=== PATIENT | male | born 1935 | race Caucasian/White ===

== ENCOUNTER → 2017-07-30 | Outpatient (CLI) | payer MEDICARE ==
[~2017-07-30] MED LIST: ALBUTEROL0.09 MG/A2 INH; ASPIRIN81 M1 PO; BRILINTA90 M1 PO; EPA1000 MG PO; KEFLEX500 MG PO; LEVOTHYROXINE0.15 M1 PO; LEVOTHYROXINE0.15 MG PO; LOSARTAN POTASS1 TA5 PO; LOSARTAN POTASS1 TAB PO; LUTEIN6 M1 PO; MEDROL DOSEPAK4 MG PO; METOPROLOL SUCC25 M2 PO; NAPROXEN500 M1 PO; OSTEO BI-FLEX1 EACH PO; PREDNICOT10 MG PO; SIMVASTATIN40 MG PO; ZITHROMAX Z PA250 MG PO
[2017-07-30 09:01] LABS: BASO # 0.1 10*3/uL (0.0-0.1); EOS # 1.2 10*3/uL (0.0-0.4); EOS % 12.4 % (1.0-4.0); HEMATOCRIT 46.2 % (42.0-52.0); HEMOGLOBIN 14.9 g/dl (14.0-18.0); LYMPH # 1.9 10*3/uL (1.3-4.4); LYMPH % 20.1 % (27.0-41.0); MEAN CELL VOLUME 92.8 fl (80.0-94.0); MEAN CORPUSCULAR HGB 29.9 pg (27.0-31.0); MEAN CORPUSCULAR HGB CONC 32.3 g/dl (33.0-37.0); MEAN PLATELET VOLUME 9.9 fl (9.6-12.3); MONO # 0.9 10*3/uL (0.1-1.0); MONO % 9.6 % (3.0-9.0); NEUT # 5.3 10*3/uL (2.3-7.9); NEUT % 56.6 % (47.0-73.0); PLATELET COUNT AUTOMATED 241 10*3/uL (130-400); RED BLOOD COUNT 4.98 10*6/uL (4.50-5.90); RED CELL DISTRI WIDTH 14.1 % (0-14.5); WHITE BLOOD COUNT 9.4 10*3/uL (4.8-10.8)
[2017-07-30 09:14] LABS: ALBUMIN 3.7 gm/dl (3.1-4.5); ALKALINE PHOSPHATASE 81 U/L (45-117); BUN 15 mg/dl (7-24); CHLORIDE 103 mmol/L (98-107); CHOLESTEROL 133 mg/dL (<200); CREATININE 0.85 mg/dL (0.70-1.30); HDL CHOLESTEROL 40 mg/dl (40-60); LDL CHOLESTEROL 61 mg/dL (9-159); POTASSIUM 4.4 mmol/L (3.5-5.1); SGOT/AST 50 IU/L (3-35); SGPT/ALT 61 U/L (12-78); SODIUM 138 mmol/L (136-145); TOTAL PROTEIN 7.7 gm/dL (6.4-8.2); TRIGLYCERIDES 162 mg/dl (<150); VLDL CHOLESTEROL 32 mg/dL (6-40)
[2017-07-30 09:43] LABS: FREE T4 1.03 ng/dl (0.76-1.46)
[2017-07-30 10:25] LABS: VITAMIN D, 25-HYDROXY 26.9 ng/mL (30-100)
== END | disposition home or self-care (01) ==
LOC: LAB 08:20
PROVIDERS: Internal Medicine
DX: Z12.5 Encounter for screening for malignant neoplasm of prostate (principal); I10 Essential (primary) hypertension; E11.9 Type 2 diabetes mellitus without complications; E89.0 Postprocedural hypothyroidism; E55.9 Vitamin D deficiency, unspecified; E78.2 Mixed hyperlipidemia

== ENCOUNTER → 2018-08-04 | Outpatient (CLI) | payer MEDICARE | END | disposition home or self-care (01) | LOC: US 12:43 | DX: I65.23 Occlusion and stenosis of bilateral carotid arteries (principal); I10 Essential (primary) hypertension ==

== ENCOUNTER 2018-10-05 09:59 | Emergency (ER) | payer MEDICARE ==
[~2018-10-05] VITALS: Ht 170.1 cm; Wt 95.3 kg
--- NOTE | ~2018-10-05 | EKG ---
[place], [place] ELECTROCARDIOGRAM REPORT NAME: MARCIA AGGARWAL UNIT #: [id number] ROOM: DOCTOR: EPIPHANY DRAFT REPORT BIRTHDATE: [birth year] 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
[~2018-10-05 09:59] MED LIST changes: -LEVOTHYROXINE0.15 M1 PO; +SYNTHROID,LEV175 MCG PO
[2018-10-05 10:09] LABS: BASO # 0.1 10*3/uL (0.0-0.1); BASO % 0.9 % (0.0-1.0); EOS % 8.6 % (1.0-4.0); HEMATOCRIT 47.2 % (42.0-52.0); HEMOGLOBIN 15.4 g/dl (14.0-18.0); LYMPH # 1.7 10*3/uL (1.3-4.4); LYMPH % 14.6 % (27.0-41.0); MEAN CELL VOLUME 92.9 fl (80.0-94.0); MEAN CORPUSCULAR HGB 30.3 pg (27.0-31.0); MEAN CORPUSCULAR HGB CONC 32.6 g/dl (33.0-37.0); MEAN PLATELET VOLUME 9.6 fl (9.6-12.3); MONO % 8.8 % (3.0-9.0); NEUT # 7.8 10*3/uL (2.3-7.9); NEUT % 66.6 % (47.0-73.0); PLATELET COUNT AUTOMATED 212 10*3/uL (130-400); RED BLOOD COUNT 5.08 10*6/uL (4.50-5.90); RED CELL DISTRI WIDTH 14.1 % (0-14.5); WHITE BLOOD COUNT 11.7 10*3/uL (4.8-10.8)
[2018-10-05 10:26] LABS: ACT PARTIAL THROMBO TIME 23.8 SECONDS (20.8-31.5)
[2018-10-05 10:28] LABS: ALBUMIN 3.7 gm/dl (3.1-4.5); ALKALINE PHOSPHATASE 77 U/L (45-117); BUN 16 mg/dl (7-24); CHLORIDE 105 mmol/L (98-107); CREATININE 0.99 mg/dL (0.70-1.30); POTASSIUM 3.9 mmol/L (3.5-5.1); SGOT/AST 57 IU/L (3-35); SGPT/ALT 91 U/L (12-78); SODIUM 136 mmol/L (136-145); TOTAL PROTEIN 7.6 gm/dL (6.4-8.2)
[2018-10-05 10:31] LABS: TROPONIN I < 0.015 ng/ml (<0.045)
== END 2018-10-05 13:37 | disposition home or self-care (01) ==
LOC: ED 09:59
PROVIDERS: Emergency Medicine
DX: R06.00 Dyspnea, unspecified (principal); I25.2 Old myocardial infarction; J45.909 Unspecified asthma, uncomplicated; E03.9 Hypothyroidism, unspecified; I11.0 Hypertensive heart disease with heart failure; I50.31 Acute diastolic (congestive) heart failure; Z91.048 Other nonmedicinal substance allergy status; Z79.899 Other long term (current) drug therapy

== ENCOUNTER 2018-10-26 00:51 | Inpatient (IN) | payer MEDICARE ==
[~2018-10-26] VITALS: Ht 170.1 cm; Wt 95.3 kg
[2018-10-26] VITALS (7 sets, daily range): BP systolic 118–184; BP diastolic 39–96
--- NOTE | ~2018-10-26 | EKG ---
[place], [place] ELECTROCARDIOGRAM REPORT NAME: MARCIA AGGARWAL UNIT #: [id number] ROOM: [facility] DOCTOR: LINA DRAFT REPORT BIRTHDATE: [birth year] [facility] Test Date: 2018-10-26 Test Time: 03:43:55 Pat Name: MARCIA AGGARWAL Department: Room: 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
--- NOTE | ~2018-10-26 | EKG ---
[place], [place] ELECTROCARDIOGRAM REPORT NAME: MARCIA AGGARWAL UNIT #: [id number] ROOM: [facility] DOCTOR: LINA DRAFT REPORT BIRTHDATE: [birth year] [facility] Test Date: 2018-10-26 Test Time: 01:05:20 Pat Name: MARCIA AGGARWAL Department: Room: 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
--- NOTE | ~2018-10-26 | EKG ---
[place], [place] ELECTROCARDIOGRAM REPORT NAME: MARCIA AGGARWAL UNIT #: [id number] ROOM: [facility] DOCTOR: LINA DRAFT REPORT BIRTHDATE: [birth year] [facility] Test Date: 2018-10-26 Test Time: 07:43:06 Pat Name: MARCAI AGGARWAL Department: Room: [facility] Gender: M Scowman: Kaylin Agustin : 1935 Requested By: MARITZA FARR Order Number: [id number] Reading MD: Monroe Chu MD Measurements Intervals [place] Rate: 70 P: 34 SC: 258 QRS: -28 QRSD: 102 T: 46 QT: 395 QTc: 427 Interpretive Statements Sinus rhythm Prolonged [place] interval Inferior infarct, old Lateral leads are also involved Baseline wander in lead(s) V6 Compared to ECG 10/17/2018 15:05:30 Ventricular premature complex(es) no longer present Myocardial infarct finding still present Electronically Signed On 10-26-2018 14:04:59 PST by Monroe Chu MD CM:EKGRPT:ELECTROCARDIOGRAM REPORT [id number] MARITZA VIRK DRAFT REPORT MARITZA FARR DO
[2018-10-26 01:22] LABS: BASO # 0.1 10*3/uL (0.0-0.1); BASO % 0.8 % (0.0-1.0); EOS # 1.3 10*3/uL (0.0-0.4); EOS % 10.8 % (1.0-4.0); HEMATOCRIT 46.9 % (42.0-52.0); HEMOGLOBIN 15.2 g/dl (14.0-18.0); LYMPH # 2.9 10*3/uL (1.3-4.4); LYMPH % 24.7 % (27.0-41.0); MEAN CELL VOLUME 94.6 fl (80.0-94.0); MEAN CORPUSCULAR HGB 30.6 pg (27.0-31.0); MEAN CORPUSCULAR HGB CONC 32.4 g/dl (33.0-37.0); MONO # 1.1 10*3/uL (0.1-1.0); MONO % 9.2 % (3.0-9.0); NEUT # 6.4 10*3/uL (2.3-7.9); NEUT % 53.9 % (47.0-73.0); PLATELET COUNT AUTOMATED 228 10*3/uL (130-400); RED BLOOD COUNT 4.96 10*6/uL (4.50-5.90); RED CELL DISTRI WIDTH 14.1 % (0-14.5); WHITE BLOOD COUNT 11.9 10*3/uL (4.8-10.8)
[2018-10-26 01:35] LABS: ACT PARTIAL THROMBO TIME 23.2 SECONDS (20.8-31.5)
[2018-10-26 02:00] LABS: ALKALINE PHOSPHATASE 103 U/L (45-117); BUN 23 mg/dl (7-24); CHLORIDE 101 mmol/L (98-107); CREATININE 0.94 mg/dL (0.70-1.30); POTASSIUM 3.9 mmol/L (3.5-5.1); SGOT/AST 35 IU/L (3-35); SGPT/ALT 64 U/L (12-78); SODIUM 136 mmol/L (136-145); TOTAL PROTEIN 7.8 gm/dL (6.4-8.2)
[2018-10-26 02:05] LABS: TROPONIN I < 0.015 ng/ml (<0.045)
[2018-10-26] MEDS ORDERED: METFORMIN850 MG PO (02:33)
[2018-10-26] MEDS ORDERED: LOSARTAN-HCTZ1 EAC2 PO (02:33)
[2018-10-26] MEDS ORDERED: TOPROL XL25 MG PO (02:34)
[2018-10-26] MEDS ORDERED: LUTEIN6 M2 PO (02:34)
[2018-10-26] MEDS ORDERED: ASPIRIN ADULT L81 MG PO (02:35)
[2018-10-26 05:18] LABS: BILIRUBIN NEGATIVE (NEGATIVE); BLOOD NEGATIVE (NEGATIVE); CLARITY CLEAR (CLEAR); COLOR YELLOW (YELLOW); GLUCOSE NEGATIVE (NEGATIVE); KETONE NEGATIVE (NEGATIVE); LEUKO ESTERASE NEGATIVE (NEGATIVE); NITRITE NEGATIVE (NEGATIVE); PH 5.5 (5.0-9.0); SPECIFIC GRAVITY 1.015 (1.005-1.030); UROBILINOGEN 0.2 E.U./dl (0.2-1.0)
[2018-10-26 05:33] LABS: BACTERIA TRACE; RBC 0-2 rbc/hpf (0-2); WBC 0-2 wbc/hpf (0-5)
[2018-10-26] MEDS ORDERED: ATROVENT HFA12.9 GM INH (05:36)
[2018-10-26 06:58] LABS: BASO # 0.1 10*3/uL (0.0-0.1); BASO % 0.7 % (0.0-1.0); EOS # 1.1 10*3/uL (0.0-0.4); EOS % 12.1 % (1.0-4.0); HEMATOCRIT 42.8 % (42.0-52.0); HEMOGLOBIN 14.1 g/dl (14.0-18.0); LYMPH # 1.6 10*3/uL (1.3-4.4); LYMPH % 17.3 % (27.0-41.0); MEAN CELL VOLUME 93.7 fl (80.0-94.0); MEAN CORPUSCULAR HGB 30.9 pg (27.0-31.0); MEAN CORPUSCULAR HGB CONC 32.9 g/dl (33.0-37.0); MEAN PLATELET VOLUME 9.6 fl (9.6-12.3); MONO # 0.8 10*3/uL (0.1-1.0); MONO % 8.4 % (3.0-9.0); NEUT # 5.5 10*3/uL (2.3-7.9); NEUT % 60.9 % (47.0-73.0); PLATELET COUNT AUTOMATED 191 10*3/uL (130-400); RED BLOOD COUNT 4.57 10*6/uL (4.50-5.90); RED CELL DISTRI WIDTH 14.1 % (0-14.5)
[2018-10-26 07:21] LABS: BUN 21 mg/dl (7-24); CHLORIDE 102 mmol/L (98-107); CHOLESTEROL 134 mg/dL (<200); CREATININE 0.92 mg/dL (0.70-1.30); FREE T4 1.04 ng/dl (0.76-1.46); HDL CHOLESTEROL 41 mg/dl (40-60); LDL CHOLESTEROL 67 mg/dL (9-159); POTASSIUM 4.1 mmol/L (3.5-5.1); SODIUM 138 mmol/L (136-145); TRIGLYCERIDES 131 mg/dl (<150); VLDL CHOLESTEROL 26 mg/dL (6-40)
[2018-10-26 08:23] LABS: VITAMIN D, 25-HYDROXY 42.2 ng/mL (30-100)
== END 2018-10-26 09:50 | disposition short-term general hospital (02) | DRG 281 ==
LOC: ED 00:51 → EDHOLD 02:14 → 5E 02:14 → ICCU 08:18
PROVIDERS: Internal Medicine; Student in an Organized Health Care Education/Training Program; ADMIT Internal Medicine
DX: I21.4 Non-ST elevation (NSTEMI) myocardial infarction (principal); I16.1 Hypertensive emergency; I45.81 Long QT syndrome; J45.909 Unspecified asthma, uncomplicated; E78.5 Hyperlipidemia, unspecified; I10 Essential (primary) hypertension; I44.0 Atrioventricular block, first degree; D75.89 Other specified diseases of blood and blood-forming organs; D72.810 Lymphocytopenia; I25.118 Atherosclerotic heart disease of native coronary artery with other forms of angina pectoris; E66.9 Obesity, unspecified; E11.65 Type 2 diabetes mellitus with hyperglycemia; E89.0 Postprocedural hypothyroidism; I25.2 Old myocardial infarction; Z88.9 Allergy status to unspecified drugs, medicaments and biological substances; Z88.5 Allergy status to narcotic agent; Z79.82 Long term (current) use of aspirin; Z79.84 Long term (current) use of oral hypoglycemic drugs; Z80.8 Family history of malignant neoplasm of other organs or systems; Z68.32 Body mass index [BMI] 32.0-32.9, adult

== ENCOUNTER → 2019-01-03 | Outpatient (CLI) | payer MEDICARE ==
[~2019-01-03] MED LIST changes: +ASPIRIN ADULT L81 MG PO; +ATROVENT HFA12.9 GM INH; +LOSARTAN-HCTZ1 EAC2 PO; +LUTEIN6 M2 PO; +METFORMIN850 MG PO; +TOPROL XL25 MG PO
== END | disposition home or self-care (01) ==
LOC: LAB 10:04
PROVIDERS: Physician Assistant
DX: R19.7 Diarrhea, unspecified (principal)

== ENCOUNTER 2019-10-26 09:03 | Emergency (ER) | payer MEDICARE ==
[~2019-10-26] VITALS: Ht 170.1 cm; Wt 90.7 kg
[2019-10-26 09:46] LABS: BASO # 0.1 10*3/uL (0.0-0.1); BASO % 0.8 % (0.0-1.0); EOS # 1.5 10*3/uL (0.0-0.4); EOS % 16.2 % (1.0-4.0); HEMATOCRIT 43.3 % (42.0-52.0); HEMOGLOBIN 13.8 g/dl (14.0-18.0); LYMPH # 1.6 10*3/uL (1.3-4.4); LYMPH % 17.3 % (27.0-41.0); MEAN CELL VOLUME 91.5 fl (80.0-94.0); MEAN CORPUSCULAR HGB 29.2 pg (27.0-31.0); MEAN CORPUSCULAR HGB CONC 31.9 g/dl (33.0-37.0); MEAN PLATELET VOLUME 9.9 fl (9.6-12.3); MONO # 0.8 10*3/uL (0.1-1.0); MONO % 8.8 % (3.0-9.0); NEUT # 5.2 10*3/uL (2.3-7.9); NEUT % 56.4 % (47.0-73.0); PLATELET COUNT AUTOMATED 199 10*3/uL (130-400); RED BLOOD COUNT 4.73 10*6/uL (4.50-5.90); WHITE BLOOD COUNT 9.3 10*3/uL (4.8-10.8)
[2019-10-26 09:58] LABS: ALBUMIN 3.6 gm/dl (3.1-4.5); ALKALINE PHOSPHATASE 92 U/L (45-117); BUN 22 mg/dl (7-24); CHLORIDE 104 mmol/L (98-107); POTASSIUM 4.2 mmol/L (3.5-5.1); SGOT/AST 28 IU/L (3-35); SGPT/ALT 60 U/L (12-78); SODIUM 137 mmol/L (136-145); TOTAL PROTEIN 7.2 gm/dL (6.4-8.2)
[2019-10-26 09:59] LABS: ACT PARTIAL THROMBO TIME 26.6 SECONDS (20.0-32.1)
[2019-10-26] MEDS ORDERED: ZOFRAN4 MG PO (11:07)
[2019-10-26] MEDS ORDERED: IMODIUM A-D2 M2 PO (11:07)
[2019-10-26] MEDS ORDERED: BRILINTA90 M1 PO (17:46)
[2019-10-26] MEDS ORDERED: MUCINEX1200 M1 PO (17:49)
== END 2019-10-26 11:15 | disposition home or self-care (01) ==
LOC: ED 09:03
PROVIDERS: Emergency Medicine
DX: K92.2 Gastrointestinal hemorrhage, unspecified (principal); J45.909 Unspecified asthma, uncomplicated; I25.10 Atherosclerotic heart disease of native coronary artery without angina pectoris; E11.9 Type 2 diabetes mellitus without complications; E78.5 Hyperlipidemia, unspecified; I10 Essential (primary) hypertension; E03.9 Hypothyroidism, unspecified; I25.2 Old myocardial infarction; E66.9 Obesity, unspecified; Z88.8 Allergy status to other drugs, medicaments and biological substances; Z79.899 Other long term (current) drug therapy; Z79.82 Long term (current) use of aspirin

== ENCOUNTER 2019-10-26 14:20 | Inpatient (IN) | payer MEDICARE ==
[~2019-10-26] VITALS: Ht 170.1 cm; Wt 96.2 kg
[~2019-10-26 14:20] MED LIST changes: +IMODIUM A-D2 M2 PO; +ZOFRAN4 MG PO
[2019-10-26 14:26] VITALS: BP 173/77
[2019-10-26 14:47] LABS: BASO # 0.1 10*3/uL (0.0-0.1); BASO % 0.6 % (0.0-1.0); EOS % 9.5 % (1.0-4.0); HEMATOCRIT 43.8 % (42.0-52.0); HEMOGLOBIN 13.8 g/dl (14.0-18.0); LYMPH # 1.9 10*3/uL (1.3-4.4); LYMPH % 17.7 % (27.0-41.0); MEAN CELL VOLUME 90.1 fl (80.0-94.0); MEAN CORPUSCULAR HGB 28.4 pg (27.0-31.0); MEAN CORPUSCULAR HGB CONC 31.5 g/dl (33.0-37.0); MONO # 1.1 10*3/uL (0.1-1.0); NEUT # 6.7 10*3/uL (2.3-7.9); NEUT % 61.7 % (47.0-73.0); PLATELET COUNT AUTOMATED 237 10*3/uL (130-400); RED BLOOD COUNT 4.86 10*6/uL (4.50-5.90); WHITE BLOOD COUNT 10.9 10*3/uL (4.8-10.8)
--- NOTE | 2019-10-26 17:45 | NUR ---
MSTime: 174 A 84 year old MALE admitted to 5E under services of JIMENA SABILLON DO. Pt. arrived via bed from ER. Chief complaint: BLOODY DIARRHEA. CANDACE GALAN
[2019-10-26] MEDS ORDERED: BRILINTA90 M1 PO (17:46)
[2019-10-26] MEDS ORDERED: MUCINEX1200 M1 PO (17:49)
--- NOTE | 2019-10-26 17:50 | NUR ---
MED REC UPDATED PER POLICY.
[2019-10-26 18:00] VITALS: BP 156/71
--- NOTE | 2019-10-26 18:44 | NUR ---
NOTIFIED OF CONSULT. NEW ORDERS RECEIVED.
[2019-10-26 20:00] VITALS: BP 145/75
[2019-10-26 23:10] VITALS: BP 100/70
--- NOTE | 2019-10-26 23:10 | NUR ---
PT CALLED NURSE INTO ROOM. STATED HE WAS FEELING FAINT AND DIDN'T FEEL GOOD. FELT LIKE HE WAS GOING TO PASS OUT. NOTIFIED DR. SINGLETON. PATIENT SITTING IN CHAIR AND STATED HE DIDN'T THINK THAT HE COULD GET INTO THE BED. PATIENT SWEATING AND NODDING OFF. PATIENTS VITALS TAKEN, DR. SINGLETON TOOK BLOOD PRESSURE MANUALLY AND WAS 100/70. ORDERS RECIEVED FOR A 500ML NORMAL SALINE BOLUS FOLLOWED BY 100ML/HR AND STAT LABS. PATIENT STATED HE PREFFERED TO SIT UP AT THIS TIME. BLOOD SUGAR ALSO CHECKED AND WAS 260
--- NOTE | 2019-10-26 23:25 | NUR ---
PRN ZOFRAN GIVEN FOR PT COMPLAINTS OF NAUSEA. CALL LIGHT WITHIN REACH, WILL MONITOR
--- NOTE | 2019-10-26 23:52 | NUR ---
AFTER 250ML BOLUS PATIENT STATED HE'S FEELING MUCH BETTER. PATIENT PROVIDED RECLINER CHAIR. REST OF BOLUS CONTINUING TO INFUSE. CALL LIGHT WITHIN REACH, WILL MONITOR
[2019-10-27] VITALS (9 sets, daily range): BP systolic 105–178; BP diastolic 45–82
[2019-10-27 00:01] LABS: BASO # 0.1 10*3/uL (0.0-0.1); BASO % 0.5 % (0.0-1.0); EOS # 1.2 10*3/uL (0.0-0.4); EOS % 9.1 % (1.0-4.0); HEMATOCRIT 39.9 % (42.0-52.0); HEMOGLOBIN 12.7 g/dl (14.0-18.0); LYMPH # 2.2 10*3/uL (1.3-4.4); LYMPH % 16.9 % (27.0-41.0); MEAN CELL VOLUME 91.5 fl (80.0-94.0); MEAN CORPUSCULAR HGB 29.1 pg (27.0-31.0); MEAN CORPUSCULAR HGB CONC 31.8 g/dl (33.0-37.0); MEAN PLATELET VOLUME 10.2 fl (9.6-12.3); MONO # 1.3 10*3/uL (0.1-1.0); MONO % 9.9 % (3.0-9.0); NEUT # 8.3 10*3/uL (2.3-7.9); NEUT % 63.1 % (47.0-73.0); PLATELET COUNT AUTOMATED 231 10*3/uL (130-400); RED BLOOD COUNT 4.36 10*6/uL (4.50-5.90); WHITE BLOOD COUNT 13.1 10*3/uL (4.8-10.8)
[2019-10-27 00:14] LABS: BUN 17 mg/dl (7-24); CHLORIDE 105 mmol/L (98-107); CREATININE 1.05 mg/dL (0.70-1.30); POTASSIUM 3.9 mmol/L (3.5-5.1); SODIUM 136 mmol/L (136-145)
--- NOTE | 2019-10-27 01:28 | NUR ---
NOTIFIED DR. SINGLETON OF ALL PATIENTS LABS. HE STATED THAT THE EKG'S AND TROPONINS CAN NOW BE CANCELLED. AND NOTIFIED HIM THAT WE ARE UNABLE TO SENT A CDIFF SAMPLE ON HIM BECAUSE HE STARTED COLO PREP SOON HE CAME TO THE FLOOR. ALSO SPOKE WITH HIM ABOUT PATIENTS LOSARTAN AND PATIENT STATING HE DOES NOT BELIEVE THAT HE TAKES THAT DOSE. DR. SINGLETON STATED THE NURSE IN THE MORNING WILL HAVE TO [facility] CHECK WITH [facility] TO MAKE SURE WHAT THE PATIENT IS ON
--- NOTE | 2019-10-27 02:00 | NUR ---
PATIENT RESTING IN RECLINER CHAIR. STATES HE'S FEELING MUCH BETTER. HAS NO COMPLAINTS AT THIS TIME. CALL LIGHT WITHIN REACH
[2019-10-27 06:24] LABS: BASO # 0.1 10*3/uL (0.0-0.1); BASO % 0.6 % (0.0-1.0); EOS # 0.7 10*3/uL (0.0-0.4); EOS % 6.5 % (1.0-4.0); HEMATOCRIT 39.1 % (42.0-52.0); HEMOGLOBIN 12.2 g/dl (14.0-18.0); LYMPH % 17.8 % (27.0-41.0); MEAN CELL VOLUME 91.8 fl (80.0-94.0); MEAN CORPUSCULAR HGB 28.6 pg (27.0-31.0); MEAN CORPUSCULAR HGB CONC 31.2 g/dl (33.0-37.0); MEAN PLATELET VOLUME 10.3 fl (9.6-12.3); MONO % 8.5 % (3.0-9.0); NEUT # 7.5 10*3/uL (2.3-7.9); PLATELET COUNT AUTOMATED 212 10*3/uL (130-400); RED BLOOD COUNT 4.26 10*6/uL (4.50-5.90); RED CELL DISTRI WIDTH 15.4 % (0-14.5); WHITE BLOOD COUNT 11.4 10*3/uL (4.8-10.8)
--- NOTE | 2019-10-27 06:28 | NUR ---
NOTIFIED DR. BLISS OF PATIENT HAVING BLOODY BUT CLEARING LIQUID STOOLS AND ASKED ABOUT GIVING ENEMAS. HE STATED TO NOT GIVE THE PATIENT ANY ENEMAS
[2019-10-27 06:56] LABS: ALBUMIN 3.5 gm/dl (3.1-4.5); BUN 16 mg/dl (7-24); CHLORIDE 106 mmol/L (98-107); CHOLESTEROL 115 mg/dL (<200); CREATININE 0.84 mg/dL (0.70-1.30); PHOSPHOROUS 3.6 mg/dL (2.5-4.9); POTASSIUM 4.1 mmol/L (3.5-5.1); SGPT/ALT 56 U/L (12-78); SODIUM 137 mmol/L (136-145); TOTAL PROTEIN 6.6 gm/dL (6.4-8.2); TRIGLYCERIDES 154 mg/dl (<150); VLDL CHOLESTEROL 31 mg/dL (6-40)
[2019-10-27 07:03] LABS: ALKALINE PHOSPHATASE 63 U/L (45-117); HDL CHOLESTEROL 34 mg/dl (40-60); LDL CHOLESTEROL 50 mg/dL (9-159); SGOT/AST 28 IU/L (3-35); THYROID STIM HORMONE (HS) 0.284 uIU/ml (0.358-4.75)
--- NOTE | 2019-10-27 07:44 | NUR ---
24 HR CHART CHECK COMPLETE.
[2019-10-27 07:50] LABS: VITAMIN D, 25-HYDROXY 43.3 ng/mL (30-100)
--- NOTE | 2019-10-27 08:00 | NUR ---
IN TO SEE PT AT THIS TIME. HE IS SITTING UP IN THE CHAIR WATCHING TV. IV FLUIDS INFUSING PER ORDER. PT STATES THAT HE IS FEELING OKAY BUT IS STILL HAVING WATERY STOOLS WITH YAMILKA RED BLOOD IN THEM. NO OTHER C/O ARE VOICED. BE IS LOW, CALL LIGHT WITHIN REACH. WILL CONTINUE TO MONITOR.
--- NOTE | 2019-10-27 09:00 | NUR ---
Psychiatric Np in to talk to patient. Patient states lives at home with . There are no steps in the home. Physician: helen davis Pharmacy: [facility] health services: none Patient's level of ADLs: INDEPENDENT Patient has working utilities: all working DME: none Follow-up physician's appointment after d/c: will be made by hospitalist nurse director upon discharge Does patient want to access PORTAL?: no Discharge plan discussed with patient, he lives at home with his , he is independent in adls and ambulation he states he will return home when medically stable and denies any home needs, case management will follow. AUBREY BARBA
--- NOTE | 2019-10-27 20:00 | NUR ---
RESTING IN BED WITH EYES CLOSED. CALL LIGHT WITHIN REACH.
--- NOTE | 2019-10-27 22:00 | NUR ---
BLOOD SUGAR 182. PT. REFUSES INSULIN.
[2019-10-28] VITALS: BP 150/67
--- NOTE | 2019-10-28 06:30 | NUR ---
BLOOD SUGAR 182; PT. REFUSES INSULIN COVERAGE & STATES THAT HE TAKEN METFORMIN AT HOME.
[2019-10-28 07:05] LABS: BASO # 0.1 10*3/uL (0.0-0.1); BASO % 0.7 % (0.0-1.0); EOS # 1.2 10*3/uL (0.0-0.4); EOS % 16.8 % (1.0-4.0); HEMATOCRIT 35.7 % (42.0-52.0); HEMOGLOBIN 11.1 g/dl (14.0-18.0); LYMPH # 1.5 10*3/uL (1.3-4.4); LYMPH % 20.4 % (27.0-41.0); MEAN CELL VOLUME 92.5 fl (80.0-94.0); MEAN CORPUSCULAR HGB 28.8 pg (27.0-31.0); MEAN CORPUSCULAR HGB CONC 31.1 g/dl (33.0-37.0); MEAN PLATELET VOLUME 10.5 fl (9.6-12.3); MONO # 0.8 10*3/uL (0.1-1.0); MONO % 10.6 % (3.0-9.0); NEUT # 3.8 10*3/uL (2.3-7.9); NEUT % 51.1 % (47.0-73.0); PLATELET COUNT AUTOMATED 186 10*3/uL (130-400); RED BLOOD COUNT 3.86 10*6/uL (4.50-5.90); RED CELL DISTRI WIDTH 15.1 % (0-14.5); WHITE BLOOD COUNT 7.3 10*3/uL (4.8-10.8)
[2019-10-28 07:29] LABS: BUN 12 mg/dl (7-24); CHLORIDE 110 mmol/L (98-107); CREATININE 0.75 mg/dL (0.70-1.30); POTASSIUM 4.1 mmol/L (3.5-5.1); SODIUM 141 mmol/L (136-145)
[2019-10-28 08:00] VITALS: BP 131/67
[2019-10-28] MEDS ORDERED: LOSARTAN-HCTZ1 EACH PO (09:30)
[2019-10-28] MEDS ORDERED: HYZAAR 50-12.51 EACH PO (09:32)
--- NOTE | 2019-10-28 10:47 | NUR ---
PHYSICIAN WAS NOTIFIED OF DR. POWERS CONSULT. RESPONSE OF NOTIFICATION WAS UP TO FLOOR TO SEE PATIENT. ALIDA AYALA
[2019-10-28 12:00] VITALS: BP 108/54
[2019-10-28] MEDS ORDERED: CARAFATE1 G1 PO (13:04)
[2019-10-28] MEDS ORDERED: PROTONIX40 MG PO (13:04)
--- NOTE | 2019-10-28 13:47 | NUR ---
PT DISCHARGED AT THIS TIME. IV REMOVED AND PRESSURE DRESSING APPLIED. PT VERBALIZED UNDERSTANDING OF DISCHARGE INSTRUCTIONS.
== END 2019-10-28 13:47 | disposition home or self-care (01) | DRG 384 ==
LOC: ED 14:20 → 5E 17:00 → EDHOLD 17:00 → 5E 17:15
PROVIDERS: Emergency Medicine; Internal Medicine; ADMIT Internal Medicine
PROC: 0DJD8ZZ Inspection of Lower Intestinal Tract, Via Natural or Artificial Opening Endoscopic (ICD-10-PCS; principal; 2019-10-27)
PROC: 0DB68ZX Excision of Stomach, Via Natural or Artificial Opening Endoscopic, Diagnostic (ICD-10-PCS; principal; 2019-10-27)
DX: K25.9 Gastric ulcer, unspecified as acute or chronic, without hemorrhage or perforation (principal); I10 Essential (primary) hypertension; E11.9 Type 2 diabetes mellitus without complications; I25.10 Atherosclerotic heart disease of native coronary artery without angina pectoris; E03.9 Hypothyroidism, unspecified; E66.09 Other obesity due to excess calories; D75.89 Other specified diseases of blood and blood-forming organs; E78.5 Hyperlipidemia, unspecified; E11.65 Type 2 diabetes mellitus with hyperglycemia; J45.909 Unspecified asthma, uncomplicated; K57.30 Diverticulosis of large intestine without perforation or abscess without bleeding; Z96.652 Presence of left artificial knee joint; I25.2 Old myocardial infarction; Z68.33 Body mass index [BMI] 33.0-33.9, adult; Z91.018 Allergy to other foods; Z79.82 Long term (current) use of aspirin; Z79.899 Other long term (current) drug therapy; Z95.5 Presence of coronary angioplasty implant and graft; Z82.49 Family history of ischemic heart disease and other diseases of the circulatory system; Z80.9 Family history of malignant neoplasm, unspecified; Z90.49 Acquired absence of other specified parts of digestive tract; Z98.42 Cataract extraction status, left eye; Z98.41 Cataract extraction status, right eye

== ENCOUNTER → 2019-10-30 | Outpatient (CLI) | payer MEDICARE ==
[~2019-10-30] MED LIST changes: +CARAFATE1 G1 PO; +HYZAAR 50-12.51 EACH PO; +LOSARTAN-HCTZ1 EACH PO; +MUCINEX1200 M1 PO; +PROTONIX40 MG PO
[2019-10-30 10:49] LABS: BASO # 0.1 10*3/uL (0.0-0.1); BASO % 0.7 % (0.0-1.0); EOS # 1.6 10*3/uL (0.0-0.4); EOS % 18.5 % (1.0-4.0); HEMATOCRIT 36.9 % (42.0-52.0); HEMOGLOBIN 11.5 g/dl (14.0-18.0); LYMPH # 1.8 10*3/uL (1.3-4.4); LYMPH % 20.9 % (27.0-41.0); MEAN CORPUSCULAR HGB 28.7 pg (27.0-31.0); MEAN CORPUSCULAR HGB CONC 31.2 g/dl (33.0-37.0); MONO # 0.8 10*3/uL (0.1-1.0); MONO % 8.8 % (3.0-9.0); NEUT # 4.3 10*3/uL (2.3-7.9); NEUT % 50.6 % (47.0-73.0); PLATELET COUNT AUTOMATED 200 10*3/uL (130-400); RED BLOOD COUNT 4.01 10*6/uL (4.50-5.90); RED CELL DISTRI WIDTH 14.9 % (0-14.5); WHITE BLOOD COUNT 8.5 10*3/uL (4.8-10.8)
== END | disposition home or self-care (01) ==
LOC: LAB 10:34
PROVIDERS: Student in an Organized Health Care Education/Training Program
DX: K25.9 Gastric ulcer, unspecified as acute or chronic, without hemorrhage or perforation (principal)

== ENCOUNTER → 2020-02-09 | Outpatient (CLI) | payer MEDICARE ==
[2020-02-09 14:59] LABS: BASO # 0.1 10*3/uL (0.0-0.1); BASO % 0.5 % (0.0-1.0); EOS # 1.1 10*3/uL (0.0-0.4); EOS % 11.4 % (1.0-4.0); HEMATOCRIT 38.5 % (42.0-52.0); LYMPH # 1.6 10*3/uL (1.3-4.4); LYMPH % 16.9 % (27.0-41.0); MEAN CELL VOLUME 84.1 fl (80.0-94.0); MEAN CORPUSCULAR HGB 24.9 pg (27.0-31.0); MEAN CORPUSCULAR HGB CONC 29.6 g/dl (33.0-37.0); MEAN PLATELET VOLUME 10.5 fl (9.6-12.3); MONO # 1.1 10*3/uL (0.1-1.0); NEUT # 5.7 10*3/uL (2.3-7.9); NEUT % 59.8 % (47.0-73.0); PLATELET COUNT AUTOMATED 239 10*3/uL (130-400); RED BLOOD COUNT 4.58 10*6/uL (4.50-5.90); RED CELL DISTRI WIDTH 16.6 % (0-14.5); WHITE BLOOD COUNT 9.6 10*3/uL (4.8-10.8)
[2020-02-09 15:32] LABS: ALBUMIN 3.6 gm/dl (3.1-4.5); ALKALINE PHOSPHATASE 73 U/L (45-117); BUN 21 mg/dl (7-24); CHLORIDE 103 mmol/L (98-107); CREATININE 0.85 mg/dL (0.70-1.30); POTASSIUM 4.2 mmol/L (3.5-5.1); SGOT/AST 35 IU/L (3-35); SGPT/ALT 53 U/L (12-78); SODIUM 136 mmol/L (136-145); TOTAL PROTEIN 7.3 gm/dL (6.4-8.2)
== END | disposition home or self-care (01) ==
LOC: LAB 12:42 → US 13:00
PROVIDERS: Urology
DX: Z12.5 Encounter for screening for malignant neoplasm of prostate (principal); I10 Essential (primary) hypertension; R53.83 Other fatigue; R35.1 Nocturia

== ENCOUNTER → 2020-02-22 | Outpatient (CLI) | payer MEDICARE | END | disposition home or self-care (01) | LOC: CT 08:12 | DX: K76.0 Fatty (change of) liver, not elsewhere classified (principal); N28.1 Cyst of kidney, acquired; K57.30 Diverticulosis of large intestine without perforation or abscess without bleeding; I71.9 Aortic aneurysm of unspecified site, without rupture; K59.09 Other constipation; N28.89 Other specified disorders of kidney and ureter; Z90.49 Acquired absence of other specified parts of digestive tract ==

== ENCOUNTER → 2021-02-12 | Outpatient (CLI) | payer MEDICARE ==
[2021-02-12 10:28] LABS: CREATININE 0.87 mg/dL (0.70-1.30)
== END | disposition home or self-care (01) ==
LOC: CT 10:00 → LAB 10:02
PROVIDERS: Radiology Diagnostic Radiology; ATTEND Urology
DX: Z01.818 Encounter for other preprocedural examination (principal); N20.0 Calculus of kidney; N28.1 Cyst of kidney, acquired; K57.30 Diverticulosis of large intestine without perforation or abscess without bleeding; I25.10 Atherosclerotic heart disease of native coronary artery without angina pectoris; K76.0 Fatty (change of) liver, not elsewhere classified; K76.89 Other specified diseases of liver; I71.4 Abdominal aortic aneurysm, without rupture; Z90.49 Acquired absence of other specified parts of digestive tract

== ENCOUNTER 2021-09-06 03:30 | Emergency (ER) | payer MEDICARE ==
[2021-09-06 04:12] LABS: BASO # 0.1 10*3/uL (0.0-0.1); BASO % 0.9 % (0.0-1.0); EOS # 1.2 10*3/uL (0.0-0.4); EOS % 15.6 % (1.0-4.0); HEMATOCRIT 39.1 % (42.0-52.0); LYMPH # 1.4 10*3/uL (1.3-4.4); LYMPH % 18.6 % (27.0-41.0); MEAN CORPUSCULAR HGB 29.2 pg (27.0-31.0); MEAN CORPUSCULAR HGB CONC 31.7 g/dl (33.0-37.0); MEAN PLATELET VOLUME 9.9 fl (9.6-12.3); MONO # 0.6 10*3/uL (0.1-1.0); MONO % 7.9 % (3.0-9.0); NEUT # 4.2 10*3/uL (2.3-7.9); NEUT % 56.6 % (47.0-73.0); PLATELET COUNT AUTOMATED 181 10*3/uL (130-400); RED BLOOD COUNT 4.25 10*6/uL (4.50-5.90); RED CELL DISTRI WIDTH 14.1 % (0-14.5); WHITE BLOOD COUNT 7.4 10*3/uL (4.8-10.8)
== END 2021-09-06 04:24 | disposition home or self-care (01) ==
LOC: ED 03:30
PROVIDERS: Internal Medicine
DX: R04.0 Epistaxis (principal); Z79.899 Other long term (current) drug therapy

== ENCOUNTER 2021-10-11 18:16 | Inpatient (IN) | payer MEDICARE ==
[~2021-10-11] VITALS: Ht 167.6 cm; Wt 93.0 kg
[2021-10-11 18:25] VITALS: BP 187/81
[2021-10-11 18:50] VITALS: BP 178/87
[2021-10-11] MEDS ORDERED: ASPIRIN ADULT L81 M2 PO (18:50)
[2021-10-11 19:22] LABS: BASO # 0.1 10*3/uL (0.0-0.1); BASO % 0.5 % (0.0-1.0); EOS # 0.8 10*3/uL (0.0-0.4); EOS % 5.7 % (1.0-4.0); HEMATOCRIT 42.1 % (42.0-52.0); LYMPH # 1.5 10*3/uL (1.3-4.4); LYMPH % 10.3 % (27.0-41.0); MEAN CELL VOLUME 90.5 fl (80.0-94.0); MEAN CORPUSCULAR HGB 28.6 pg (27.0-31.0); MEAN CORPUSCULAR HGB CONC 31.6 g/dl (33.0-37.0); MEAN PLATELET VOLUME 9.8 fl (9.6-12.3); MONO # 0.8 10*3/uL (0.1-1.0); MONO % 5.7 % (3.0-9.0); NEUT # 11.3 10*3/uL (2.3-7.9); NEUT % 77.1 % (47.0-73.0); PLATELET COUNT AUTOMATED 322 10*3/uL (130-400); RED BLOOD COUNT 4.65 10*6/uL (4.50-5.90); RED CELL DISTRI WIDTH 14.6 % (0-14.5); WHITE BLOOD COUNT 14.6 10*3/uL (4.8-10.8)
[2021-10-11 19:42] LABS: ALKALINE PHOSPHATASE 94 U/L (45-117); BUN 26 mg/dl (7-24); CHLORIDE 106 mmol/L (98-107); CREATININE 1.17 mg/dL (0.70-1.30); POTASSIUM 4.5 mmol/L (3.5-5.1); SGOT/AST 29 IU/L (3-35); SGPT/ALT 39 U/L (12-78); SODIUM 136 mmol/L (136-145); TOTAL PROTEIN 7.6 gm/dL (6.4-8.2)
[2021-10-11 20:50] LABS: BILIRUBIN Negative (Negative); BLOOD Negative (Negative); CLARITY Clear (Clear); COLOR Yellow (Yellow); GLUCOSE Negative (Negative); KETONE Negative (Negative); LEUKO ESTERASE Negative (Negative); NITRITE Negative (Negative); SPECIFIC GRAVITY 1.015 (1.001-1.030); UROBILINOGEN 0.2 E.U./dl (0.0-1.0)
[2021-10-11 21:13] LABS: WBC 0-2 wbc/hpf (0-5)
[2021-10-11 21:53] VITALS: BP 181/84
[2021-10-11 21:56] VITALS: BP 157/82
[2021-10-12 00:05] VITALS: BP 150/80
[2021-10-12 03:10] VITALS: BP 168/90
[2021-10-12 06:17] LABS: BUN 21 mg/dl (7-24); CHLORIDE 107 mmol/L (98-107); CHOLESTEROL 108 mg/dL (<200); CREATININE 0.92 mg/dL (0.70-1.30); LDL CHOLESTEROL 47 mg/dL (9-159); POTASSIUM 4.2 mmol/L (3.5-5.1); SODIUM 138 mmol/L (136-145); TRIGLYCERIDES 158 mg/dl (<150)
[2021-10-12 06:25] LABS: BASO # 0.1 10*3/uL (0.0-0.1); BASO % 0.6 % (0.0-1.0); EOS # 0.7 10*3/uL (0.0-0.4); EOS % 6.5 % (1.0-4.0); HEMATOCRIT 39.4 % (42.0-52.0); LYMPH # 1.4 10*3/uL (1.3-4.4); LYMPH % 13.3 % (27.0-41.0); MEAN CORPUSCULAR HGB 28.1 pg (27.0-31.0); MEAN CORPUSCULAR HGB CONC 31.2 g/dl (33.0-37.0); MONO # 0.8 10*3/uL (0.1-1.0); MONO % 7.5 % (3.0-9.0); NEUT # 7.7 10*3/uL (2.3-7.9); NEUT % 71.3 % (47.0-73.0); PLATELET COUNT AUTOMATED 306 10*3/uL (130-400); RED BLOOD COUNT 4.38 10*6/uL (4.50-5.90); RED CELL DISTRI WIDTH 14.5 % (0-14.5); WHITE BLOOD COUNT 10.8 10*3/uL (4.8-10.8)
[2021-10-12 07:47] LABS: VITAMIN D, 25-HYDROXY 47.1 ng/mL (30-100)
[2021-10-12 12:00] VITALS: BP 169/73
[2021-10-13] VITALS: BP 161/74
[2021-10-13 05:55] LABS: BUN 16 mg/dl (7-24); CHLORIDE 106 mmol/L (98-107); CREATININE 0.83 mg/dL (0.70-1.30); LIPASE 74 U/L (73-393); POTASSIUM 4.1 mmol/L (3.5-5.1); SODIUM 138 mmol/L (136-145)
[2021-10-13 06:39] LABS: BASO # 0.1 10*3/uL (0.0-0.1); BASO % 0.9 % (0.0-1.0); EOS # 0.7 10*3/uL (0.0-0.4); HEMATOCRIT 38.9 % (42.0-52.0); LYMPH # 1.5 10*3/uL (1.3-4.4); LYMPH % 19.2 % (27.0-41.0); MEAN CELL VOLUME 91.3 fl (80.0-94.0); MEAN CORPUSCULAR HGB 28.6 pg (27.0-31.0); MEAN CORPUSCULAR HGB CONC 31.4 g/dl (33.0-37.0); MONO # 0.6 10*3/uL (0.1-1.0); MONO % 7.3 % (3.0-9.0); NEUT # 4.9 10*3/uL (2.3-7.9); NEUT % 62.8 % (47.0-73.0); PLATELET COUNT AUTOMATED 300 10*3/uL (130-400); RED BLOOD COUNT 4.26 10*6/uL (4.50-5.90); RED CELL DISTRI WIDTH 14.4 % (0-14.5); WHITE BLOOD COUNT 7.8 10*3/uL (4.8-10.8)
[2021-10-13 08:34] VITALS: BP 143/70
[2021-10-13 12:00] VITALS: BP 164/68
[2021-10-13 16:00] VITALS: BP 177/72
[2021-10-13 20:00] VITALS: BP 188/102
[2021-10-14] VITALS: BP 170/84
[2021-10-14 04:57] VITALS: BP 186/85
[2021-10-14 06:27] LABS: BASO # 0.1 10*3/uL (0.0-0.1); BASO % 0.8 % (0.0-1.0); EOS # 0.9 10*3/uL (0.0-0.4); EOS % 9.5 % (1.0-4.0); HEMATOCRIT 42.1 % (42.0-52.0); LYMPH # 1.7 10*3/uL (1.3-4.4); LYMPH % 18.7 % (27.0-41.0); MEAN CELL VOLUME 90.5 fl (80.0-94.0); MEAN CORPUSCULAR HGB 28.2 pg (27.0-31.0); MEAN CORPUSCULAR HGB CONC 31.1 g/dl (33.0-37.0); MEAN PLATELET VOLUME 9.9 fl (9.6-12.3); MONO # 0.7 10*3/uL (0.1-1.0); MONO % 7.2 % (3.0-9.0); NEUT # 5.8 10*3/uL (2.3-7.9); NEUT % 63.3 % (47.0-73.0); PLATELET COUNT AUTOMATED 330 10*3/uL (130-400); RED BLOOD COUNT 4.65 10*6/uL (4.50-5.90); RED CELL DISTRI WIDTH 14.2 % (0-14.5); WHITE BLOOD COUNT 9.2 10*3/uL (4.8-10.8)
[2021-10-14 06:29] LABS: BUN 15 mg/dl (7-24); CHLORIDE 104 mmol/L (98-107); CREATININE 0.92 mg/dL (0.70-1.30); POTASSIUM 4.3 mmol/L (3.5-5.1); SODIUM 138 mmol/L (136-145)
[2021-10-14 08:00] VITALS: BP 177/93; BP 177/98
[2021-10-14 12:00] VITALS: BP 171/73
[2021-10-14 16:00] VITALS: BP 161/76
[2021-10-14 20:00] VITALS: BP 175/79
[2021-10-15] VITALS: BP 162/47
[2021-10-15 05:06] LABS: TB1 Ag VALUE 0.01 IU/mL (.)
[2021-10-15 06:16] LABS: BASO # 0.1 10*3/uL (0.0-0.1); BASO % 0.7 % (0.0-1.0); EOS # 0.9 10*3/uL (0.0-0.4); EOS % 9.3 % (1.0-4.0); HEMATOCRIT 41.8 % (42.0-52.0); LYMPH # 1.7 10*3/uL (1.3-4.4); LYMPH % 18.2 % (27.0-41.0); MEAN CELL VOLUME 90.1 fl (80.0-94.0); MEAN CORPUSCULAR HGB 28.7 pg (27.0-31.0); MEAN CORPUSCULAR HGB CONC 31.8 g/dl (33.0-37.0); MEAN PLATELET VOLUME 10.2 fl (9.6-12.3); MONO # 0.6 10*3/uL (0.1-1.0); MONO % 6.9 % (3.0-9.0); NEUT # 5.9 10*3/uL (2.3-7.9); NEUT % 64.1 % (47.0-73.0); PLATELET COUNT AUTOMATED 311 10*3/uL (130-400); RED BLOOD COUNT 4.64 10*6/uL (4.50-5.90); RED CELL DISTRI WIDTH 14.2 % (0-14.5); WHITE BLOOD COUNT 9.2 10*3/uL (4.8-10.8)
[2021-10-15 06:32] LABS: BUN 17 mg/dl (7-24); CHLORIDE 103 mmol/L (98-107); CREATININE 0.83 mg/dL (0.70-1.30); SODIUM 137 mmol/L (136-145)
[2021-10-15 08:00] VITALS: BP 130/78
[2021-10-15] MEDS ORDERED: LOSARTAN-HCTZ1 EACH PO (10:54)
[2021-10-15] MEDS ORDERED: JARDIANCE10 MG PO (14:13)
== END 2021-10-15 12:09 | disposition home or self-care (01) | DRG 683 ==
LOC: ED 18:16 → 4E 10-12 01:41 → EDHOLD 10-12 01:41 → 4E 10-12 02:09
PROVIDERS: Family Medicine; Hospitalist; Internal Medicine; Internal Medicine Infectious Disease; Student in an Organized Health Care Education/Training Program; ADMIT Internal Medicine; ATTEND Internal Medicine
DX: N17.2 Acute kidney failure with medullary necrosis (principal); R65.10 Systemic inflammatory response syndrome (SIRS) of non-infectious origin without acute organ dysfunction; R91.8 Other nonspecific abnormal finding of lung field; Z20.822 Contact with and (suspected) exposure to COVID-19; D64.9 Anemia, unspecified; E53.8 Deficiency of other specified B group vitamins; R19.7 Diarrhea, unspecified; I10 Essential (primary) hypertension; E03.9 Hypothyroidism, unspecified; E78.5 Hyperlipidemia, unspecified; I25.10 Atherosclerotic heart disease of native coronary artery without angina pectoris; E11.65 Type 2 diabetes mellitus with hyperglycemia; J45.909 Unspecified asthma, uncomplicated; R91.1 Solitary pulmonary nodule; J44.9 Chronic obstructive pulmonary disease, unspecified; E66.9 Obesity, unspecified; Z79.82 Long term (current) use of aspirin; Z79.899 Other long term (current) drug therapy; Z95.5 Presence of coronary angioplasty implant and graft; Z68.33 Body mass index [BMI] 33.0-33.9, adult

== ENCOUNTER → 2022-12-16 | Outpatient (CLI) | payer MEDICARE ==
[~2022-12-16] MED LIST changes: +ASPIRIN ADULT L81 M2 PO; +JARDIANCE10 MG PO
== END | disposition home or self-care (01) ==
LOC: US 12:47
PROVIDERS: ATTEND Orthopaedic Surgery
DX: Z47.1 Aftercare following joint replacement surgery (principal); M79.89 Other specified soft tissue disorders; M71.22 Synovial cyst of popliteal space [Baker], left knee

== ENCOUNTER 2023-02-06 18:09 | Emergency (ER) | payer MEDICARE ==
[~2023-02-06] VITALS: Wt 90.7 kg
== END 2023-02-06 21:00 | disposition home or self-care (01) ==
LOC: ED 18:09
DX: M25.462 Effusion, left knee (principal); I50.9 Heart failure, unspecified; I11.0 Hypertensive heart disease with heart failure; I25.10 Atherosclerotic heart disease of native coronary artery without angina pectoris; E11.9 Type 2 diabetes mellitus without complications; E78.00 Pure hypercholesterolemia, unspecified; Z98.42 Cataract extraction status, left eye; Z98.41 Cataract extraction status, right eye; Z98.890 Other specified postprocedural states; Z96.652 Presence of left artificial knee joint; Z90.89 Acquired absence of other organs; Z87.442 Personal history of urinary calculi; Z90.49 Acquired absence of other specified parts of digestive tract

== ENCOUNTER → 2023-02-10 | Outpatient (CLI) | payer MEDICARE ==
[2023-02-10 14:46] LABS: BASO # 0.1 10*3/uL (0.0-0.1); BASO % 0.7 % (0.0-1.0); EOS # 1.1 10*3/uL (0.0-0.4); EOS % 10.7 % (1.0-4.0); HEMATOCRIT 44.3 % (42.0-52.0); LYMPH # 1.3 10*3/uL (1.3-4.4); LYMPH % 12.5 % (27.0-41.0); MEAN CELL VOLUME 95.1 fl (80.0-94.0); MEAN CORPUSCULAR HGB 30.9 pg (27.0-31.0); MEAN CORPUSCULAR HGB CONC 32.5 g/dl (33.0-37.0); MEAN PLATELET VOLUME 10.4 fl (9.6-12.3); MONO # 0.8 10*3/uL (0.1-1.0); MONO % 8.4 % (3.0-9.0); NEUT # 6.7 10*3/uL (2.3-7.9); NEUT % 67.1 % (47.0-73.0); PLATELET COUNT AUTOMATED 206 10*3/uL (130-400); RED BLOOD COUNT 4.66 10*6/uL (4.50-5.90); RED CELL DISTRI WIDTH 13.4 % (0-14.5)
== END | disposition home or self-care (01) ==
LOC: LAB 14:18
PROVIDERS: ATTEND Orthopaedic Surgery
DX: M25.562 Pain in left knee (principal); R53.83 Other fatigue